=== PATIENT | male | born 1955 | race Caucasian/White ===

== ENCOUNTER 2023-07-11 13:30 | Outpatient (RCR) | payer BC, SELFPAY | END 2023-10-22 13:54 | disposition home or self-care (01) | PROVIDERS: PCP Family Medicine; Visit Provider Family Medicine | DX: M48.10 Ankylosing hyperostosis [Forestier], site unspecified (principal); M45.9 Ankylosing spondylitis of unspecified sites in spine; M26.609 Unspecified temporomandibular joint disorder, unspecified side; Z51.89 Encounter for other specified aftercare | CPT/HCPCS: 97110; 97140; 97162 ==

== ENCOUNTER 2023-09-21 07:25 | Emergency (ER) | payer BC, SELFPAY ==
[2023-09-21 07:36] VITALS: BP 156/87; PULSE 67; RESP 18; TEMP 36.3; O2SAT 97; BMI 35.9
--- NOTE | 2023-09-21 08:12 | ED_ITS ---
HPI - General Adult General Chief complaint: Ear/Nose/Throat Problem Stated complaint: trouble breathing Time Seen by Provider: 09/21/23 07:53 History of Present Illness HPI narrative: This 68-year-old male comes in because of 2 weeks of cough. He has been seen 3 times in urgent care and has been taking the steroid, Zithromax, nasal spray, and [id number] medicines. He has had testing for COVID, influenza, RSV, and strep which returned negative. He comes in today because he has difficulty sleeping due to persistent coughing. He also has a hoarse voice. Related Data Home Medications Medication Instructions Recorded Confirmed diclofenac sodium 75 mg 75 mg PO BID 09/12/23 09/19/23 tablet,delayed release ketoconazole 2 % topical cream 1 applic topical 09/12/23 09/19/23 losartan 25 mg tablet 25 mg PO DAILY 09/12/23 09/19/23 metoprolol succinate 50 mg 50 mg PO DAILY 09/12/23 09/19/23 tablet,extended release 24 hr tamsulosin 0.4 mg capsule 0.8 mg PO QPM 09/12/23 09/19/23 Previous Rx's Medication Instructions Recorded azithromycin 250 mg tablet See Rx Instructions PO .COMPLEX #6 09/17/23 tabs benzonatate 200 mg capsule 200 mg PO BID PRN cough 5 days #10 09/17/23 caps prednisone 20 mg tablet 40 mg (2 x 20 mg) PO QDAY 5 days 09/17/23 #10 tabs albuterol sulfate 90 mcg/actuation 2 puff inhalation Q4-6H PRN 09/19/23 aerosol inhaler (Ventolin HFA) shortness of breath or wheezing #8.5 grams acetaminophen 300 mg-codeine 30 mg 1 tab PO Q6H PRN pain #24 tabs 09/21/23 tablet methylprednisolone 4 mg tablets in See Rx Instructions PO .COMPLEX 09/21/23 a dose pack (Medrol (Chas)) #21 ea Allergies Allergy/AdvReac Type Severity Reaction Status Date / Time No Known Drug Allergies Allergy Verified 09/19/23 19:38 Review of Systems Status of ROS: Reports: 10 or more systems reviewed and unremarkable except as noted in History and below Narrative: Constitutional: No fevers, no weight gain or loss. Eyes: No discharge. No vision changes. HENT: Sore throat. Cardiovascular: No chest pain, no palpitations. Respiratory: No shortness of breath, no wheezes. Frequent coughing especially at night. Gastrointestinal: No abdominal pain, no vomiting, no diarrhea. Genitourinary: No dysuria, no hematuria. Musculoskeletal: Normal range of motion. Skin: No rashes, no pruritis. Neurological: No dizziness, weakness, sensory change, speech change. Endo/Heme/Allergies: No bruising or bleeding. No polydipsia. Pysch: no suicidality, no anxiety, no insomnia. All other systems reviewed and are negative. Exam Narrative: Exam Narrative: Constitutional: Well-developed, well-nourished, no acute distress. HEENT: Normocephalic, atraumatic. Oropharynx has no sign of exudate or tonsillar hypertrophy. No muffled voice or trismus. Neck: Normal range of motion. Nontender. Supple. Heart: Regular. No murmurs. Normal rate. Intact distal pulses. Lungs: Clear to auscultation. No chest discomfort. No wheezes, rhonchi, or rales. Abdomen: Normal bowel sounds. Nontender. No rebound tenderness. Genitalia: Deferred. Back: No midline tenderness. Normal range of motion. Extremities: Normal range of motion. No injury. Skin: Intact. No rash. Warm. No erythema or pallor. Neurologic: No altered sensation. No weakness. Alert and oriented. Psychiatric: No suicidality. No anxiety or depression. No insomnia. Nursing notes and vitals signs are reviewed. Const: Vital Signs, click to edit/add: Vital Signs - 24 hr 09/21/23 07:36 Temperature 97.3 F L Pulse Rate [Pulse Oximeter] 67 Respiratory Rate 18 Blood Pressure [Ri ght Upper Arm] 156/87 H Pulse Oximetry 97 Oxygen Delivery Me thod Room Air Course Vital Signs Vital signs: Initial Vital Signs Temperature 97.3 F L 09/21/23 07:36 Temperature Source Temporal Artery Scan 09/21/23 07:36 Pulse Rate 67 09/21/23 07:36 Respiratory Rate 18 09/21/23 07:36 Blood Pressure 156/87 H 09/21/23 07:36 Blood Pressure Mean 110 H 09/21/23 07:36 Pulse Oximetry 97 09/21/23 07:36 Oxygen Delivery Method Room Air 09/21/23 07:36 Vital Signs Temperature 97.3 F L 09/21/23 07:36 Pulse Rate 67 09/21/23 07:36 Respiratory Rate 18 09/21/23 07:36 Blood Pressure 156/87 H 09/21/23 07:36 Pulse Oximetry 97 09/21/23 07:36 Oxygen Delivery Method Room Air 09/21/23 07:36 Temperature 97.3 F L 09/21/23 07:36 Pulse Rate 67 09/21/23 07:36 Respiratory Rate 18 09/21/23 07:36 Blood Pressure 156/87 H 09/21/23 07:36 Pulse Oximetry 97 09/21/23 07:36 Oxygen Delivery Method Room Air 09/21/23 07:36 Medical Decision Making MDM Narrative Medical decision making narrative: This patient comes in with persistent cough and upper respiratory symptoms that began 2 weeks ago. He has been on several medications as described above and arrives here today with normal vital signs. He states that his primary symptom is unrelenting cough at night such that he has difficulty sleeping. He has been using [id number] cough medicine without much relief. I did discuss x-ray and CT imaging options along with lab studies that can be done. In a process of shared decision-making the patient declined any of these seeing that he has normal vital signs and has had testing done at urgent care. He is okay to be discharged home and did receive a prescription for Tylenol 3 and Medrol Dosepak. Discharge Plan Discharge Clinical Impression: Upper respiratory infection Patient Disposition: Home, Self-Care Condition: Stable Additional Instructions: Take medications as prescribed. Use [id number] medicines also as needed and directed. Follow up with MD or return if worsening symptoms happen. Prescriptions: New acetaminophen-codeine 300-30 mg tablet 1 tab PO Q6H PRN (Reason: pain) Qty: 24 0RF methylprednisolone [Medrol (Chas)] 4 mg tablets,dose pack See Rx Instructions .ROUTE .COMPLEX Qty: 21 0RF Rx Instructions: orally per package directions No Action diclofenac sodium 75 mg tablet,delayed release (DR/EC) 75 mg PO BID ketoconazole 2 % cream 1 applic topical tamsulosin 0.4 mg capsule 0.8 mg PO QPM losartan 25 mg tablet 25 mg PO DAILY metoprolol succinate 50 mg tablet extended release 24 hr 50 mg PO DAILY benzonatate 200 mg capsule 200 mg PO BID PRN (Reason: cough) 5 Days Qty: 10 0RF azithromycin 250 mg tablet See Rx Instructions PO .COMPLEX Qty: 6 0RF Rx Instructions: For 250 mg dose pack: take 500 mg today (day 1), then 250 mg for 4 days (days 2-5) PO prednisone 20 mg tablet 40 mg PO QDAY 5 Days Qty: 10 0RF albuterol sulfate [Ventolin HFA] 90 mcg/actuation HFA aerosol inhaler 2 puff inhalation Q4-6H PRN (Reason: shortness of breath or wheezing) Qty: 8.5 0RF Follow Up/Referrals: Charan Floyd MD [Primary Care Provider] - Stand Alone Forms: [employer] Info Instructions
== END 2023-09-21 08:26 | disposition home or self-care (01) ==
LOC: ED 08:22
PROVIDERS: Emergency Provider Emergency Medicine Emergency Medical Services; PCP Family Medicine
DX: J06.9 Acute upper respiratory infection, unspecified (principal)
CPT/HCPCS: 95992; 99283; 99284

== ENCOUNTER 2024-11-07 07:38 | Outpatient (CLI) | payer MEDICARE, BC, SELFPAY ==
[2024-11-07 12:36] VITALS: BMI 37.7
== END 2024-11-07 07:39 | disposition home or self-care (01) ==
LOC: NUTRITION 07:38
PROVIDERS: PCP Family Medicine; Visit Provider Dietitian, Registered
DX: E66.9 Obesity, unspecified (principal); Z68.36 Body mass index [BMI] 36.0-36.9, adult; Z71.3 Dietary counseling and surveillance
CPT/HCPCS: G0463

== ENCOUNTER 2024-11-21 09:40 | Outpatient (CLI) | payer MEDICARE, BC, SELFPAY ==
[2024-11-21 09:33] VITALS: BMI 37.0
== END 2024-11-21 09:41 | disposition home or self-care (01) ==
LOC: NUTRITION 09:40
PROVIDERS: PCP Family Medicine; Visit Provider Dietitian, Registered
DX: E66.9 Obesity, unspecified (principal); Z68.36 Body mass index [BMI] 36.0-36.9, adult; Z71.3 Dietary counseling and surveillance
CPT/HCPCS: G0463

== ENCOUNTER 2024-12-05 08:59 | Outpatient (CLI) | payer MEDICARE, BC, SELFPAY ==
[2024-12-05 10:59] VITALS: BMI 37.0
== END 2024-12-05 09:00 | disposition home or self-care (01) ==
LOC: NUTRITION 09:00
PROVIDERS: PCP Family Medicine; Visit Provider Dietitian, Registered
DX: E66.9 Obesity, unspecified (principal); Z68.36 Body mass index [BMI] 36.0-36.9, adult; Z71.3 Dietary counseling and surveillance
CPT/HCPCS: G0463

== ENCOUNTER 2024-12-26 11:08 | Outpatient (CLI) | payer MEDICARE, BC, SELFPAY ==
[2024-12-26 08:53] VITALS: BMI 36.6
== END 2024-12-26 11:09 | disposition home or self-care (01) ==
LOC: NUTRITION 11:09
PROVIDERS: PCP Family Medicine; Visit Provider Dietitian, Registered
DX: E66.9 Obesity, unspecified (principal); Z68.36 Body mass index [BMI] 36.0-36.9, adult; Z71.3 Dietary counseling and surveillance
CPT/HCPCS: G0463

== ENCOUNTER 2025-01-16 09:45 | Outpatient (CLI) | payer MEDICARE, BC, SELFPAY ==
[2025-01-16 10:11] VITALS: BMI 36.9
== END 2025-01-16 09:46 | disposition home or self-care (01) ==
LOC: NUTRITION 09:46
PROVIDERS: PCP Family Medicine; Visit Provider Dietitian, Registered
DX: E66.9 Obesity, unspecified (principal); Z68.36 Body mass index [BMI] 36.0-36.9, adult; Z71.3 Dietary counseling and surveillance
CPT/HCPCS: G0463

== ENCOUNTER 2025-02-06 11:00 | Outpatient (CLI) | payer MEDICARE, BC, SELFPAY ==
[2025-02-06 09:50] VITALS: BMI 37.1
== END 2025-02-06 11:01 | disposition home or self-care (01) ==
LOC: NUTRITION 02-10 11:48
PROVIDERS: PCP Family Medicine; Visit Provider Dietitian, Registered
DX: E66.9 Obesity, unspecified (principal); Z68.36 Body mass index [BMI] 36.0-36.9, adult; Z71.3 Dietary counseling and surveillance
CPT/HCPCS: G0463

== ENCOUNTER 2025-02-24 09:00 | Outpatient (CLI) | payer MEDICARE, BC, SELFPAY ==
[2025-02-24 09:35] VITALS: BMI 36.8
== END 2025-02-24 09:01 | disposition home or self-care (01) ==
LOC: NUTRITION 02-25 10:01
PROVIDERS: PCP Family Medicine; Visit Provider Dietitian, Registered
DX: E66.9 Obesity, unspecified (principal); Z68.36 Body mass index [BMI] 36.0-36.9, adult; Z71.3 Dietary counseling and surveillance
CPT/HCPCS: G0463

== ENCOUNTER 2025-03-10 06:38 | Outpatient (CLI) | payer MEDICARE, BC, SELFPAY ==
[2025-03-10 08:27] VITALS: BMI 36.3
== END 2025-03-10 06:39 | disposition home or self-care (01) ==
LOC: NUTRITION 06:45
PROVIDERS: PCP Family Medicine; Visit Provider Dietitian, Registered
DX: E66.9 Obesity, unspecified (principal); Z68.36 Body mass index [BMI] 36.0-36.9, adult; Z71.3 Dietary counseling and surveillance
CPT/HCPCS: G0463

== ENCOUNTER 2025-03-31 07:04 | Outpatient (CLI) | payer MEDICARE, BC, SELFPAY ==
[2025-03-31 13:09] VITALS: BMI 36.1
--- OUTSIDE RECORDS SUMMARY | 2025-04-01 00:54 | XMS_ITS | Clinical Summary ---
Author Organization [facility] Address [address] , [address] [place] [address] Phone Care Team Providers Care Dispensing Audiologist Name Role Phone [facility] Unavailable Unava ilable Conditions or Problems Problem Name Problem Code Onset Date Status Entry Date Provider Comment Standard Description Annotate Cerebral infarctions I63.9 (ICD-10-CM ) 11/16 Active 11/16 Gigi Cooper MD Cerebral infarction, unspecified Sensorineural hearing loss, bilateral [id number] (SNOMED CT) 02/25 Active 11/16 Gigi Cooper MD Sensorineural hearing loss of bilateral ears Imported from [facility]: [facility] ( at 08:33:31 AM) Sacroiliac pain [id number] (SNOMED CT) 11/29 Active 11/16 Gigi Cooper MD Pain of sacroiliac joint Imported from [facility]: [facility] ( at 08:33:31 AM) Hip replacement, right [id number] (SNOMED CT) 11/05 Active 11/16 Gigi Cooper MD Repair of hip Obstructive sleep apnea [id number] (SNOMED CT) 04/25 Active 11/16 Gigi Cooper MD Obstructive sleep apnea syndrome Imported from [facility]: [facility] ( at 08:33:31 AM) Malignant melanoma of lower extremity, including hip C43.70 (ICD-10-CM ) 10/15 Active 11/16 Gigi Cooper MD Malignant melanoma of unspecified lower limb, including hip [facility] ( at 08:[facility] AM) Lung nodules R91.8 (ICD-10-CM ) 02/22 Active 11/16 Gigi Cooper MD Other nonspecific abnormal finding of lung field Imported from [facility]: [facility] ( at 08:33:31 AM) Lumbosacral spondylosis without myelopathy [id number] (SNOMED CT) 11/29 Active 11/16 Gigi Cooper MD Lumbosacral spondylosis without myelopathy Imported from [facility]: [facility] ( at 08:33:31 AM) Hyperplastic colon polyp K63.5 (ICD-10-CM ) 10/09 Active 11/16 Gigi Cooper MD Polyp of colon Imported from [facility]: [facility] ( at 08:33:31 AM) HTN (hypertension) I10 (ICD-10-CM ) 10/29 Active 11/16 Gigi Cooper MD Essential (primary) hypertension Imported from [facility]: [facility] ( at 08:33:31 AM) BPH with urinary obstruction [id number] (SNOMED CT) 03/21 Active 11/16 Gigi Cooepr MD Benign prostatic hyperplasia with outflow obstruction Imported from [facility]: [facility] ( at 08:33:31 AM) Medications Medication Instructions Start Date Stop Date Generic Name [facility] Provider ASPIRIN 81 MG CHEW ASPIRIN [id number] Gigi Cooper MD TAMSULOSIN HCL 0.4 MG CAPS 0.8 mg at bedtime tamsulosin [id number] QIEUSER QIEUSER multivitamin Take 1 Tablet by mouth once daily. MVI QIEUSER QIEUSER LOSARTAN POTASSIUM 25 MG TABS Take 1 Tablet (25 mg) by mouth once daily. Wait until they call for this. losartan [id number] QIEUSER QIEUSER VITAMIN D3 25 MCG (1000 UT) CAPS Take 1 Capsule (1,000 units) by mouth once daily. cholecalciferol (vitamin d3) [id number] QIEUSER QIEUSER Ca carb-Ca gluc-Mg ox-Mg gluco Take by mouth. Calcium Magnesium QIEUSER QIEUSER Medications Administered No information available. Allergies, Adverse Reactions, Alerts Allergy Name Reaction Description Start Date Severity Statu s Provider HYMENOPTERA ALLERGENIC EXTRACT Edema Severe Active Gigi gilbert MD Results Date Name Value Unit Range Flag Description Chart Maintenance: Patient I ntake EGFR NOT AFA >60 mL/min/1.7 3m2 Glomerular filtration rate/1.73 sq M.predicted among non-blacks [Volume Rate/Area] in Serum, Plasma or Blood by Creatinine-based formula (MDRD) CA 9.2 mg/dL Calcium [Mass/volume] in Serum or Plasma ABSOLUTE BAS normal 10*3/uL Basophil s [#/volume] in Blood GFR >60 mL/min Glomerular filtration rate/1.73 sq M.predicted among non-blacks [Volume Rate/Area] in Serum, Plasma or Blood by Creatinine-based formula (MDRD) NON-HDL CHOL 121 mg/dL choleste rol, non-HDL, total CHOL/HDL 3.37 cholesterol/ HDL ratio, serum CO2 TOTAL 25 mmol/L carbon diox marguerite, serum, total GLUCOSE SER 101 mg/dL Glucose [Mass/volume] in Serum or Plasma TRIGLYC TOT 108 mg/dL Triglycer marguerite [Mass/volume] in Serum or Plasma - mg/dL BUN/CREAT 17 Urea nitrogen/Creatinin e [Mass Ratio] in Serum or Plasma ANION GAP 7 Anion gap 4 in Serum or Plasma SODIUM 141 mmol/L Sodium [Moles/volume] in Serum or Plasma PSA 2.36 ng/mL Prostate spec ific Ag [Mass/volume] in Serum or Plasma POTASSIUM 4.9 mmol/L Potassium [Moles/volume] in Serum or Plasma LDL 99 mg/dL Cholesterol i n LDL [Mass/volume] in Serum or Plasma - mg/dL HDL 51 mg/dL Cholesterol i n HDL [Mass/volume] in Serum or Plasma - mg/dL CREATININE 0.89 mg/dL Creatinine [Mass/volume] in Serum or Plasma CHOLESTEROL 172 mg/dL Cholester ol [Mass/volume] in Serum or Plasma - mg/dL CHLORIDE 109 mmol/L Chloride [Moles/volume] in Serum or Plasma BUN 15 mg/dL Urea nitrogen [Mass/volume] in Serum or Plasma Office Visit: old strokes on MRI fax SMOK STATUS former smoker Tob acco smoking status Internal Other: Authorizatio n - OBS [id number] Yes GE use only - for [employer] import when terms are not otherwise specified HIECONSENT Yes Consent To Release information to the Health Information Exchange ([employer]) Plan of Care Type Date Detail Pending order Echocardiogram C omplete with Bubble w/o Contrast Pending order Other Test Pending order Other Test Pending Order exclud ed from report: Pending order Echocardiogram C omplete with Bubble w/o Contrast Pending Order exclud ed from report: Procedures No information available. Vital Signs Date Name Value Unit Description BMI (Body Mass Index) 35.03 kg/m2 Bod y Mass Index (Ratio) BP Diastolic 70 mm[Hg] blood pressu re, diastolic BP Systolic 130 mm[Hg] blood pressur e, systolic Heart Rate 76 /min pulse rate Height 70.25 [in_us] height E&M Weight Measured 111.36 kg weight in kilograms E&M Weight Measured 245 [lb_av] weight E& M Weight Measured 245 [lb_av] weight E& M Body Temperature 36.39 [degF] temperat ure E&M Immunizations No information available. Advance Directives No information available.
--- OUTSIDE RECORDS SUMMARY | 2025-04-01 00:56 | XMS_ITS | Clinical Summary ---
Author Organization [facility] Address [address] [place] [id number] Care Team Providers Care Husbandry Person Name Role Phone Charan Floyd MD Primary Care Provider [phone] Rich Mann MD Unavailable Dianna Mix TESTER [employer]POS[employer]AKAGE Unavailable Allergies Active Allergy Reactions Criticality Noted Date Comments Hymenoptera Allergenic Extract Edema High 11/03 Venom-Honey Bee Angioedema 04/21/1976 Medications multivitamin (MVI) tablet Take 1 Tablet by mouth once daily. 0 1 Active cholecalciferol (Vitamin D) 1,000 unit capsule Take 1 Capsule (1,000 units) by mouth once daily. 0 1 Active acetaminophen (TYLENOL EXTRA STRGTH) 500 mg tablet 1 Active metroNIDAZOLE 0.75 % cream APPLY THIN LAYER TO ENTIRE FACE 1-2X DAILY 2 Active CPAPIndications: Obstructive sleep apnea CPAP machine for home use at pressure: 9.6 cmw , Heated humidifier x 1 q 5 yr, Humidifier chamber x 1 q 6 mo, Full face mask x1 q 3mos, with cushion x 1 q mo, Heated tubing x 1 q 3 mo, Headgear x 1 q 6 mo, Filters: Disposable x 2 q mo non-disposable filters x1 q 6mo, Length of Need: 99 months, Frequency of use: Daily 1 Each 11 3 Active medication order composer Using CBD cream on arms and back as needed Active ubidecarenone/vi tamin E mixed (COQ10 SG 100 ORAL) Take by mouth once daily. Active PLANT STANOL NATALIE ORAL Take by mouth once daily. Active melatonin 1 mg tablet Take 1 mg by mouth at bedtime. Unsure of dose Active tamsulosin (FLOMAX) 0.4 mg capsuleIndicatio ns:BPH with urinary obstruction TAKE 1 capsule twice daily 180 Capsule 3 4 Active losartan (COZAAR) 25 mg tabletIndication s:HTN (hypertension) Take 1 Tablet (25 mg) by mouth once daily. 90 Tablet 3 4 Active metoprolol succinate (TOPROL XL) 50 mg sustained-releas e tabletIndication s:Paroxysmal SVT (supraventricula r tachycardia) (HC) Take 1 Tablet (50 mg) by mouth once daily. 90 Tablet 3 4 Active CPAPIndications: KALEN (obstructive sleep apnea) CPAP (E0601) machine for home use at pressure: 5-16 , Choice of mask (A7030 or A7034) w/full face cushion (A7031) x1/mo, nasal cushion (A7032) x2/mo, or nasal pillows (A7033) x 2/mo; Length of Need: 99 months; Frequency of use: Daily 1 Each 11 4 Active rosuvastatin (Crestor) 20 mg tabletIndication s:Coronary artery disease due to lipid rich plaque Take 1 Tablet (20 mg) by mouth at bedtime. 90 Tablet 4 4 Active Active Problems Problem Noted Date Diagnosed Date Coronary artery disease due to lipid rich plaque 06/24/2024 DISH (diffuse idiopathic skeletal hyperostosis) 06/12/2023 Overview (06/12/2023): Diagnosed by Dr. Alvarez in 05/2023. Ankylosing spondylitis 06/12/2023 Overview (06/12/2023): Diagnosed by Dr. Alvarez in 05/2023. History of stroke 09/23/2021 Overview (09/23/2021): Optimize lipids. Keep Systolic blood pressure below 135 and diastolic blood pressure between 60 and 85 Malignant melanoma of lower extremity, including hip 08/15/2021 Overview (08/15/2021): 2 Malignant Melanomas. One on his left back and one on his left carrasco in May 2021. BPH with urinary obstruction 03/21/2021 Squamous cell cancer of skin of right cheek 06/09 Overview (06/30/2020): Treated with scraping 04/2020 Obstructive sleep apnea 07/09/2018 Overview (04/25/2019): Uses CPAP and that is working well. Benign prostatic hyperplasia with lower urinary tract symptoms 11/18/2016 Lung nodules 02/23/2016 Overview (02/23/2016): A calcified granuloma was diagnosed in the right lung and 2 pulmonary nodules were diagnosed in the left lung on a CT scan in February 2016. It is recommended that a follow-up CT scan to look at these lesions be done in 6-12 months. Basal cell carcinoma of skin of face 05/26/2015 HTN (hypertension) 10/29/2013 Hyperplastic colon polyp 08/09/2012 Overview (08/01/2022): Colonoscopy 08/2012 polyp repeat in 10 years Colonoscopy 07/2022 hyperplastic polyp, repeat in 10 years Lumbar Facet Arthropathy with Normal Disks 11/29 Osteoarthritis of Left Hip 11/29/2009 Left Sacroiliac Osteoarthritis 11/29/2009 Sensorineural hearing loss, bilateral 02/26/2008 Unspecified sleep apnea 02/21/2008 Resolved Problems Problem Noted Date Diagnosed Date Resolved Date Hypertrophy of prostate with out urinary obstruction and other lower urinary tract symptoms (LUTS) 02/21/2008 11/18/2016 Hypertrophy of prostate with urinary obstruction and other lower urinary tract symptoms (LUTS) 02/19/2008 02/19/2008 Immunizations Immunization Administration Dates Next Due COVID-19 vaccine (Arstasis NTMemento 30mcg/0.3mL) PF, MDV 09/23/2021,02/01/2021,01/11/2021 Td (Age >=7 Years) 12/06/1998 Tdap 04/25/2019,05/19/2009 Family History Medical History Relation Name Comments Diabetes type II Brother Miguel Heart Disease Brother Miguel Hyperlipidemia Brother Miguel Hypertension Brother Miguel Sleep apnea Brother Miguel Arthritis Father Cancer Father at 80 of L eukemia Diabetes Father Heart Disease Maternal Grandmother a t 81 of MS Dementia Mother Parkinsonism Mother of this at 87 Heart Disease Paternal Grandfather a t 65 of MS Stroke Paternal Grandmother at 75 Diabetes type II Sister 1 Krissy Sleep apnea Sister 1 Krissy Sleep apnea Sister 2 Tamika Relation Name Status Comments Brother Miguel Alive Father Maternal Grandmother Mother Paternal Grandfather Paternal Grandmother Sister 1 Krissy Alive Sister 2 Tamika Alive Social History Tobacco Use Types Packs/Day Years Used Date Smoking Tobacco: Never Smokeless Tobacco: Never Tobacco Cessation:Counseling Given: Yes Alcohol Use Standard Drinks/Week Comments Yes 7 (1 standard drink = 0.6 oz pur e alcohol) 1 beer daily PHQ-2 Answer Date Recorded PHQ-2 TOTAL SCORE 0 06/27/2024 Social Connections Answer Date Recorded Do you often feel lonely or isolated from those around you? 0 06/11/2024 Alcohol Use Answer Date Recorded How often do you have a drink containing alcohol ? 4 06/11/2024 How many drinks containing a lcohol do you have on a typical day when you are drinking? 0 06/11/2024 How often do you have five or more drinks on one occasion? 0 06/11/2024 Financial Resource Strain Answer Date R ecorded Difficulty of Paying Living Expenses 3 06/11/2024 Difficulty of Paying Living Expenses Not on file 06/11/2024 Food Insecurity Answer Date Recorded Do you worry your food will run out before you are able to buy more? 1 06/11/2024 Transportation Needs Answer Date Record ed Does lack of transportation keep you from medica l appointments? 1 06/11/2024 Does lack of transportation keep you from work, meetings or getting things that you need? 1 06/11/2024 Housing Stability Answer Date Recorded What is your housing situation today? 1 06/11/2024 Utilities Answer Date Recorded Do you have trouble paying f or utilities (for example, heat, electricity, water, phone)? 1 06/11/2024 Sex and Gender Information Value Date Recorded Sex Assigned at Male 07/12/2020 8:46 AM CDT Legal Sex Male 5:24 AM BOX PRESS OPERATOR Gender Identity Not on file Sexual Orientation Not on file Obstetrics History Last Filed Vital Signs Vital Sign Reading Time Taken Comments Blood Pressure 133/79 08/19/2024 9:30 AM BOX PRESS OPERATOR Pulse 56 08/19/2024 9:30 AM BOX PRESS OPERATOR Temperature 36.5 C (97.7 F) 06/27/2024 8:02 AM CDT Respiratory Rate 18 08/07/2018 10:32 AM CDT Oxygen Saturation 95% 08/19/2024 9:30 AM BOX PRESS OPERATOR Inhaled Oxygen Concentration - - Weight 116 kg (255 lb 12.8 oz) 08/19/2024 9:30 A M BOX PRESS OPERATOR Height 177.8 cm (5' 10) 06/27/2024 8:02 AM CDT Body Mass Index 36.7 06/27/2024 8:02 AM CDT Plan of Treatment Health Maintenance Due Date Last Done Comments Pneumococcal series for age 50+ (1 of 2 - PCV) 1972 Zoster (shingles) series for age 50+ (1 of 2) 2003 COVID-19 vaccine series ( season) 2024 09/23/2021, 02/01/2021, 01/11/2021 Influenza Vaccine (Season Ended) 2025 BMI (ht and wt on same day) for age 18+ 06/27/2025 06/27/2024, 06/12/2023, 08/28/2022, Additional history exists Depression screening for age 12+ 06/27/2025 06/27/2024, 06/13/2024, 06/13/2024, Additional history exists Medicare Wellness for age 65+ 06/28/2025 06/27/2024 RSV vaccine for adults or (1 - 1-dose 75+ series) 2028 Tetanus booster 04/25/2029 04/25/2019, 05/08, 12/06/1998 Lipids for age 45-75 06/24/2029 06/24/2024, 06/12/2023, 04/12/2022, Additional history exists Colonoscopy through age 75 07/27/203207/27, 07/27/2022, 07/27/2022, Additional history exists Tdap Completed 04/25/2019, 05/19/2009 Hepatitis C screening for age 18-79 Completed 06/12/2023 Hepatitis B series for 19+ Aged Out N o longer eligible based on patient's age to complete this topic Medical Devices Implanted Type Area Ebd Teacher Device Identifier Shelf Expiration Date Model / Serial / Lot Liner Hip Id36mm Dynasty A-Class Pe - [id number] Implanted:Qty: 1 on 11/04/2013 by Layo Cho MD at [facility] Left: Hip 05/06/2021 [id number] / / [id number] Stem Hip Sz8 Profemur Tl Titnm - [id number] Implanted:Qty: 1 on 11/04/2013 by Layo Cho MD at [facility] Left: Hip [employer] 01/04/2021 [id number] / / [id number] Shell Hip Od60mm Dynasty Biofoam Titnm - [id number] Implanted:Qty: 1 on 11/04/2013 by Layo Cho MD at [facility] Left: Hip [employer] 06/06/2021 [id number]# / / [id number] Liner 36mm Group G Implanted:Qty: 1 on 11/04/2013 by Layo Cho MD at [facility] Left: Hip 11/06/2021 [id number] / / [id number] Description:Dynasty A-class polyliner Neck Hip Short Sz2 Profemur Ante/Retro/Varus/Va lgus Co Cr - [id number] Implanted:Qty: 1 on 11/04/2013 by Layo Cho MD at [facility] Left: Hip [employer] 01/04/2019 [id number] # / / [id number] Head Hip Od36mm Short Lineageguardian Alumina Ceramic - [id number] Implanted:Qty: 1 on 11/04/2013 by Layo Cho MD at [facility] Left: Hip [employer] 06/06/2021 [id number] # / / [id number] Explanted Type Area Ebd Teacher Device Identifier Shelf Expiration Date Model / Serial / Lot Pin Kevyn Thread 3/16in - [id number] Explanted:Qty: 1 on 11/04/2013 by Layo Cho MD at [facility] Left: Hip [employer] 07/07/2023 47-2620 -13# / / [id number] Stanford Bagley Thread 12/21in - [id number] Explanted:Qty: 1 on 11/04/2013 by Layo Cho MD at [facility] Left: Hip [employer] 06/06/2023 [id number] -13# / / [id number] Procedures Procedure Name Priority Date/Time Associated Diagnosis Comments LIPID PANEL W REFLEX MEASURED LDL Routine 06/24/2024 10:53 AM CDT Other hyperlipidemia ANTI HCV Routine 06/12/2023 10:00 AM CDT Need for hepatitis C screening test COLONOSCOPY SCREENING Routine 07/27/2022 7:27 AM CDT Screening for colon cancer from Last 3 Months or Most Recently Relevant to Health Maintenance Results * (ABNORMAL) LIPID PANEL W REFLEX MEASURED LDL (06/24/2024 10:53 AM CDT) CHOLESTEROL, TOTAL 200(H) <200 mg/dL [facility] HDL CHOLESTEROL 49 > OR = 40 mg/dL [facility] TRIGLYCERIDES 296(H) <150 mg/dL [facility] Comment: If a non-fasting specimen was collected, consider repeat triglyceride testing on a fasting specimen if clinically indicated. Tessie et al. J. of Clin. Lipidol. 2015;9:129-169. LDL-CHOLESTEROL 112(H) mg/dL (calc) [facility] Comment: Reference range: <100 Desirable range <100 mg/dL for primary prevention; <70 mg/dL for patients with CHD or diabetic patients with > or = 2 CHD risk factors. LDL-C is now calculated using the Jonathon calculation, which is a validated novel method providing better accuracy than the Friedewald equation in the estimation of LDL-C. Raymundo SS et al. PHIL. 2013;310(19): 9709-9406 (http://education.KickAss Candy/faq/JBO284) CHOL/HDLC RATIO 4.1 <5.0 (calc) [facility] NON HDL CHOLESTEROL 151(H) <130 mg/dL (calc) [facility] Comment: For patients with diabetes plus 1 major ASCVD risk factor, treating to a non-HDL-C goal of <100 mg/dL (LDL-C of <70 mg/dL) is considered a therapeutic option. Blood BLOOD SPECIMEN / Unknown 06/24/2024 10:53 AM CDT 06/24/2024 10:54 AM CDT Charan Floyd MD CHEMISTRY Final Resu lt Performing Organization Address [facility]/ZIP Co de Phone Number [facility] [address] [place] [address], [facility] [address] [place] [address] * ANTI HCV (06/12/2023 10:00 AM CDT) HEPATITIS C ANTIBODY Non-Reacti ve Non-React rachel 06/12/2023 5:55 PM CDT [facility] Comment:Please note, per www .CDC.gov: If a patient is known to be at high risk of HCV infection, or is symptomatic, and the physician's suspicion of HCV infection is high, HCV RNA testing is often employed and is of diagnostic value, even after an initial negative anti-HCV test result. Blood BLOOD SPECIMEN / Unknown Venipuncture / Unknown 06/12/2023 10:00 AM CDT 06/12/2023 10:03 AM CDT Charan Floyd MD SEND OUTS Final Resu lt [facility] [address] [place] [address], [place] * COLONOSCOPY (07/27/2022 7:34 AM CDT) 07/27/2022 7:34 AM CDT Narrative Transcriptions Raymundo Ware MD - 07/27/2022 8:44 AM CDT Patient Name: Raymundo Meza Procedure Date: 07/27/2022 Gender: Male Date of : 1955 Admit Type: Outpatient Procedure: Colonoscopy Proceduralist: Raymundo Ware MD , Laquita Kc, RN (Nurse) Referring MD: Charan Floyd Indications/Pre-Op Diagnosis: Screening for colorectal malignant neoplasm, Last colonoscopy: August 2012 Medications: Fentanyl 100 micrograms IV, Midazolam 3 mgIV, The level of sedation administered wasmoderate Procedure Description: The patient had risks, benefits and alternatives explained to andgave informed consent. The patient had a stable cardiopulmonary status and judged an adequate candidate for conscious sedation. The endoscope [id number] was passed through the anus andadvanced to the cecum, identified by appendiceal orifice and ileocecal valve.The colonoscopy was performed without difficulty. The patient toleratedthe procedure well. The quality of the bowel preparation was good. The ileocecal valve, appendiceal orifice, and rectum were photographed. Complications: No immediate complications. Estimated Blood Loss & Specimen: Estimated blood loss: none. Specimen collected - Yes and sent to Laboratory Findings: The perianal and digital rectal examinations were normal. Two sessile polyps were found in the sigmoid colon. The polyps were 3mm in size. These polyps were removed with a cold snare. Resection and retrieval were complete. A 1 mm polyp was found in the rectum. The polyp was sessile. Thepolyp was removed with a cold snare. Resection was complete, but the polyp tissue was not retrieved. The exam was otherwise without abnormality. Impressions/Post-Op Diagnosis: - Two 3 mm polyps in the sigmoid colon, removed with a cold snare. Resected and retrieved. - One 1 mm polyp in the rectum, removed with a cold snare. Complete resection. Polyp tissue not retrieved. - The examination was otherwise normal. Recommendation: - Patient has a contact number available for emergencies. The signsand symptoms of potential delayed complications were discussed with the patient. Return to normal activities tomorrow. Written discharge instructions were provided to the patient. - Resume previous diet. - Continue present medications. - Await pathology results. - Repeat colonoscopy is recommended. The colonoscopy date will be determined after pathology results from today's exam become available for review. Moderate Sedation: A time out was performed before the procedure. Moderate (conscious) sedation was administered by the endoscopy nurse and supervised bythe endoscopist. The following parameters were monitored: oxygensaturation, heart rate, blood pressure, EKG, CO2, respiratory rate, adequacy of pulmonary ventilation and reponse to care. Please refer to the patient's medical record flowsheets and nursing notes for moderate sedation details. Total physician intraservice time was 24 minutes. Raymundo Ware MD 07/27/2022 8:44:43 AM This report has been signed electronically. Note Initiated On: 07/27/2022 7:34 AM Procedure Code(s): --- Professional --- 19862, Colonoscopy, flexible; with removalof tumor(s), polyp(s), or other lesion(s) bysnare technique Diagnosis Code(s): --- Professional --- Z12.11, Encounter for screening formalignant neoplasm of colon D12.5, Benign neoplasm of sigmoid colon D12.8, Benign neoplasm of rectum CPT copyright 2020 [employer]. All rights reserved. The codes documented in this report are preliminary and upon medical biller coder reviewmay be revised to meet current compliance requirements. Scope In: 8:07:29 AM Scope Withdrawal Time 0 hours 13 minutes 31 seconds Scope Out: 8:25:04 AM us Raymundo Ware MD PROCEDURE ORD Final Res ult from Last 3 Months or Most Recently Relevant to Health Maintenance Insurance [employer] PB ONLY * Guarantor: [employer] CONTRACT,EDUCATION NO-CHARGE Account Type Relation to Patient Date of Phone Billing Address Contract 2009 ATTN: [employer] [address] [place] [address] Advance Directives Documents on File Type Date Recorded Patient Baggage Screener Expl anation Healthcare Directive 11/13/2013 6:03 PM * Full Code (Latest Code Status on File) Date Activated Date Inactivated Comments 11/04/2013 11:00 AM 11/05/2013 6:00 PM Care Teams Husbandry Person Relationship Specialty Start Date End Date Charan Floyd MD [address] [facility] [address] PCP - General 01/20/06 Rich Mann MD [address] [facility] [address] Urology Surgery - Urology 12/19/11 Dianna Mix NP [address] [place] [address] Nurse Practitioner - Family 02/08/23
--- OUTSIDE RECORDS SUMMARY | 2025-04-01 00:56 | XMS_ITS | Clinical Summary ---
Author Organization [facility] Address [address] [place] [address] Care Team Providers Care Automation Engineering Technician Name Role Phone Charan Floyd MD Primary Care Provider [phone] Source Comments You are receiving this document as you are listed as the primary care provider,follow-up provider, or the patient has been referred to you for consultation.This is in compliance with the Medicare and[facility] EHR Incentive Program,which states Providers who transition their patient to another setting of careor provider of care or refers their patient to another provider of care shouldprovide summary care record for each transition of care or referral. [place] Airline Allergies Active Allergy Reactions Criticality Noted Date Comments Bee Venom Angioedema,Swelling High 04/21/1976 Wasp Venom Protein Edema,generalized High 11/03/2013 Medications coenzyme Q10 10 MG capsule Take 1 Capsule (10 mg) by mouth. Active losartan (COZAAR) 25 MG tablet losartan 25 mg tablet TAKE 1 TABLET BY MOUTH EVERY DAY Active metoprolol succinate (TOPROL XL) 50 MG 24 hour release tablet metoprolol succinate ER 50 mg tablet,extended release 24 hr Active metroNIDAZOLE (METROCREAM) 0.75 % cream metronidazole 0.75 % topical cream APPLY THIN LAYER TO ENTIRE FACE 1-2X DAILY Active tamsulosin (FLOMAX) 0.4 MG CAPS capsule tamsulosin 0.4 mg capsule TAKE 2 CAPSULES BY MOUTH AT BEDTIME Active diclofenac (VOLTAREN) 75 MG enteric coated tablet TAKE 1 TABLET(75 MG) BY MOUTH TWICE DAILY 60 Tablet 2 3 Active Active Problems Problem Noted Date Diagnosed Date DISH (diffuse idiopathic skeletal hyperostosis) 05/18/2023 History of bilateral hip replacements 05/18/2023 Severe obesity (BMI 35.0-39.9) with comorbidity 05/18/2023 History of stroke 09/23/2021 Overview (01/05/2023): Optimize lipids. Keep Systolic blood pressure below 135 and diastolic blood pressure between 60 and 85 Malignant melanoma of lower extremity, including hip 08/15/2021 Overview (01/05/2023): 2 Malignant Melanomas. One on his left back and one on his left carrasco in May 2021. Squamous cell cancer of skin of right cheek 06/09 Overview (01/05/2023): Treated with scraping 04/2020 Obstructive sleep apnea syndrome 07/09/2018 Overview (01/05/2023): Uses CPAP and that is working well. Uses CPAP and that is working well. Benign localized hyperplasia of prostate 017 Hypertrophy of prostate with urinary obstruction 11/18/2016 Lung nodules 02/23/2016 Overview (01/05/2023): A calcified granuloma was diagnosed in the right lung and 2 pulmonary nodules were diagnosed in the left lung on a CT scan in February 2016. It is recommended that a follow-up CT scan to look at these lesions be done in 6-12 months. Basal cell carcinoma of skin of face 05/26/2015 Hypertension 10/29/2013 Hyperplastic colon polyp 08/09/2012 Overview (01/05/2023): Colonoscopy 08/2012 polyp repeat in 10 years Colonoscopy 07/2022 hyperplastic polyp, repeat in 10 years Lumbosacral spondylosis without myelopathy 11/29 Osteoarthritis of hip 11/29/2009 Sacroiliac pain 11/29/2009 Sensorineural hearing loss, bilateral 02/26/2008 Resolved Problems Problem Noted Date Diagnosed Date Resolved Date Sleep apnea 02/21/2008 02/09/2023 Immunizations Immunization Administration Dates Next Due Pfizer Monovalent 12+ Purple Top 09/23/2021,01/07,01/11/2021 Td 12/06/1998 Tdap 04/25/2019,05/19/2009 Family History Medical History Relation Name Comments Rheumatologic Disease Negative Family History Social History Tobacco Use Types Packs/Day Years Used Date Smoking Tobacco: Never Smokeless Tobacco: Never Tobacco Cessation:Counseling Given: Not Answered Alcohol Use Standard Drinks/Week Comments Yes 4 (1 standard drink = 0.6 oz pur e alcohol) Sex and Gender Information Value Date Recorded Sex Assigned at Not on file Legal Sex Male 4:15 AM CDT Gender Identity Not on file Sexual Orientation Not on file Last Filed Vital Signs Vital Sign Reading Time Taken Comments Blood Pressure 144/88 08/24/2023 11:48 AM MANAGER RELOCATION Pulse 57 08/24/2023 11:48 AM MANAGER RELOCATION Temperature - - Respiratory Rate - - Oxygen Saturation - - Inhaled Oxygen Concentration - - Weight 115.7 kg (255 lb) 08/24/2023 11:48 AM MANAGER RELOCATION Height 177.8 cm (5' 10) 01/05/2023 7:40 AM CDT Body Mass Index 36.59 01/05/2023 7:40 AM CDT Plan of Treatment Health Maintenance Due Date Last Done Comments Colon Cancer Screening Plan Due 1953 Adult Preventive Visit 1971 Cholesterol 1988 Pneumococcal Vaccine 50+ Yrs (1 of 1 - PCV) 2003 Zoster/Shingles Vaccine (1 o f 2) 2003 COVID-19 Vaccine (4 - 2023-2 5 season) 2024 09/23/2021, 02/01/2021, 01/11/2021 Influenza Vaccine (Season Ended) 2025 RSV Vaccine (1 - 1-dose 75+ series) 2028 DTaP/Tdap/Td Vaccine (3 - Tdap) 04/25/2029 04/25/2019, 05/19/2009, 12/06/1998 Hep C Screening (Preventive Services) Completed 02/09/2023 HepA Vaccine Aged Out No longer eligi ble based on patient's age to complete this topic HepB Vaccine Aged Out No longer eligi ble based on patient's age to complete this topic Hib Vaccine Aged Out No longer eligi ble based on patient's age to complete this topic MCV4 Vaccine Aged Out No longer eligi ble based on patient's age to complete this topic Meningococcal B Vaccine Aged Out No l onger eligible based on patient's age to complete this topic Procedures Procedure Name Priority Date/Time Associated Diagnosis Comments HEPATITIS C ANTIBODY, WITH REFLEX (ANTI-HCV) Routine 02/09/2023 2:55 PM CDT Ankylosing spondylitis of site in spine (HRC) from Last 3 Months or Most Recently Relevant to Health Maintenance Results * Hepatitis C Antibody, with Reflex (02/09/2023 2:55 PM CDT) Hepatitis C Antibody Negative (Non Reactive) Negative (Non Reactive) 02/09/2023 8:30 PM CDT [facility] Comment:Antibodies to HCV no t detected. Does not exclude the possiblity of exposure to HCV. Blood Venipuncture / Unknown 02/09/2023 2:55 PM CDT 02/09/2023 2:55 PM CDT Mike Alvarez MD LAB_1 Final Result [facility] [address] [place] [address], [facility] from Last 3 Months or Most Recently Relevant to Health Maintenance Insurance [facility] MEDICARE PART A Care Teams Automation Engineering Technician Relationship Specialty Start Date End Date Charan Floyd MD [address] [place] [phone] PCP - General 09/03/13
--- OUTSIDE RECORDS SUMMARY | 2025-04-01 00:56 | XMS_ITS | Data Portability ---
Author Organization [place] [facility] Address [address] [facility] [address] [place] [address] Assessment Encounter Date Assessment Date Assessment LastModified by Organization Details LastModified Time 08/02/2022 08/02/2022 66 Y/O MALE, HX BPH AND RELATED SX.S TWO EPISODES OF RETENTION IN THE PAST. PRESENTLY STABLE ON FLOMAX 0.8 MG DAY. HE DID NOT TOLERATE FINASTERIDE. PVR 21CC, U/A NEG. SEEN BY DR HANSEN AT [facility]. ALSO SEEN AT [facility] WITH EXTENSIVE WORKUP. SIZE 93G. PSA 2.4. REVIEWED EXTENSIVE RECORDS FROM [facility], [facility] ORDERED AND REVIEWED U/A,PVR. REVIEWED ALL OPTIONS- U-LIFT, REZUM, GREENLIGHT LASER, HOLEP, TURP, PAE, AND SOON TO COME AQUA ABALATION. PLAN HE WILL CONTINUE WITH MEDICAL THERAPY. RTC 3 MO AND LATER DECIDE ON MORE DEFINITIVE THERAPY.ALL QUESTIONS ANSWERED. Not available 08/02/2022 14:55:34 Plan of Treatment Reminders Order Date Submit Date Provider Last Modified By Organization Details Last Modified Time Details Appointments None recorded. Lab urinalysis , dipstick 2021 022 rugarte2 [facility], [address], [place], [address], 14:00:59 Referral None recorded. Procedures None recorded. Surgeries None recorded. Imaging None recorded. Medication Orders None recorded. Patient TargetsNo targets recorded. Patient InstructionsNo instructions recorded. Reason for Referral None Reported. Results Created Date Observation Date Name Description Value Unit Range Abnormal Flag Note LastModifiedBy Organization Detail LastModifiedTime 08/02/2008/02/2022 urina lysis , dipst ick Color-Status Yellow Not Available [facility] [address], [place], [address], 08/02/2022 14:00:43 08/02/20 22 08/02/2022 urina lysis , dipst ick Clarity-Stat us Clear Not Available [facility] [address], [place], [address], 08/02/2022 14:00:43 08/02/20 22 08/02/2022 urina lysis , dipst ick pH-Status 5.5 Not Available [facility] [address], [place], [address], 08/02/2022 14:00:43 08/03/20 22 08/02/2022 bladd er scan (PROC ) No observ ation record ed. BARCODE Not Available 2021 12:16:00 Result Notes None recorded. Procedures Surgical History Date Name Laterality Status Provider Name and Address Organization Details Recorded Time Bladder Scan completed Faraz Ferrer MD [address] [place] [address],[address], [place], [address], [facility] 08/02/2022 14:00:20 Imaging Results None recorded. Procedure Notes None recorded. Medical Equipment None Reported. Allergies No known drug allergies Medications Name Sig Start Date Stop Date Status Note LastModified by Organization Details LastModified Time binaxnow cov kit home nabeel active Not Available Not Available Not Available atorvastati n 40 mg tablet 08/02 completed Not Available Not Available Not Available atorvastati n 20 mg tablet 08/02 completed Not Available Not Available Not Available metoprolol succinate ER 50 mg tablet,exte nded release 24 hr active Not Available Not Available Not Available acetaminoph en 500 mg tablet 08/02 completed Not Available Not Available Not Available tamsulosin 0.4 mg capsule TAKE 2 CAPSULES BY MOUTH AT BEDTIME active Not Available Not Available No t Available metronidazo le 0.75 % topical cream APPLY THIN LAYER TO ENTIRE FACE 1-2X DAILY active Not Available Not Available No t Available losartan 25 mg tablet TAKE 1 TABLET BY MOUTH EVERY DAY active Not Available Not Available No t Available aspirin 81 mg chewable tablet active Not Available Not Available Not Available oxycodone 5 mg tablet TAKE 1/2 - 1 TABLET BY MOUTH EVERY 4 TO 6 HOURS NEEDED. MAXIMUM DAILY DOSE IS IS 6 TABLETS. TAKE 1/2 FOR MODERATE PAIN AND 1 FOR SEVERE. 08/02 completed Not Available Not Available Not Available rosuvastati n 10 mg tablet 08/02 completed Not Available Not Available Not Available peg 3350-electr olytes 236 gram-22.74 gram-6.74 gram-5.86 gram solution DRINK 2 LITERS THE DAY BEFORE THE DAY BEFORE COLONOSCO PY AND 2 LITERS 4-6 HOURS BEFORE APPOINTME NT 08/02 completed Not Available Not Available Not Available Xarelto 10 mg tablet TAKE 1 TABLET BY MOUTH DAILY FOR DEEP VEIN CLOT PREVENTIO N POST-SURG CHRISTINE. COMPLETE BEFORE STARTING ASPIRIN 08/02 completed Not Available Not Available Not Available Stimulant Laxative Plus 8.6 mg-50 mg tablet TAKE 1 TO 4 TABLETS BY MOUTH TWICE DAILY. HOLD MED IF EXPERIENC ING LOOSE STOOLS 08/02 completed Not Available Not Available Not Available Vitals Date Recorded Body height Body mass index (BMI) Body weight Provider Name and Address Organization Details Last Updated DateTime 08/02/2022 177.8 cm 35.2 kg/m2 580187.13 g Faraz Ferrer MD [address] [place] [address], [phone], [facility] 08/02/2022 13:57:40 Social History Question Answer Notes LastModified by Organizat ion Details LastModified Time Tobacco Smoking Status Never Smoker Faraz Ferrer MD [address] [place] [address],[address], [address], [facility] 08/02/2022 13:59:24 What Was The Date Of Your Most Recent Tobacco Screening? 08/02/2022 Information not available 08/02/2022 Sex: Unknown Functional Status None recorded. Mental Status None recorded. Family History Nothing Reported. Medical History Condition Response Other Y High Blood Pressure Y High Cholesterol Y Past Encounters Encounter ID Performer Location Encounter Start Date Encounter Closed Date Diagnosis/Indication Diagnosis SNOMED-CT Code Diagnosis ICD10 Code Diagnosis Note [id number] Faraz Ferrer MD [facility] [address] [place] [address] 08/02/2022 13:36:17 08/04/2022 13:47:25 Benign prostatic hyperplasia with outflow obstruction 783916375 N40.1 Health Concerns Section Related Observation LastModified by Organization Detai ls LastModified Time None Recorded Concern Status LastModified by Organization Details LastModified Time None Recorded Advance Directives Directive None Recorded Payers Insurance Date Sequence Insurance Name Policy Number Policy Diaz Covered Member ID Diaz Member ID Guarantor Name 08/02/2022 1 [employer] [employer] [place] [id number] Raymundo Meza [id number] Raymundo Meza Notes Date Note Type Note Provider Name and Address Organization Details Recorded Time 08/02/2022 text/html 66 YOM HERE FOR 2ND OPINION FOR BPH.PAST HX OF URINARY RETENTION AFTER ETOH. TAKES TAMSULOSIN TWICE A DAY. DOING WELL. HAS BEEN SEEN IN [facility] AND AT [facility]. EXTENSIVE EVALUATION. CYSTO. U/S SIZE 93G. PSA 2.4. PVR 21CC, U/A NEG. Faraz Ferrer MD [address] [facility],[address], [place], [address], [facility] 08/02/2022 14:56:00
== END 2025-03-31 07:05 | disposition home or self-care (01) ==
LOC: NUTRITION 07:04
PROVIDERS: PCP Family Medicine; Visit Provider Dietitian, Registered
DX: E66.9 Obesity, unspecified (principal); Z68.36 Body mass index [BMI] 36.0-36.9, adult; Z71.3 Dietary counseling and surveillance
CPT/HCPCS: G0463

== ENCOUNTER 2025-04-21 06:31 | Outpatient (CLI) | payer MEDICARE, BC, SELFPAY ==
[2025-04-21 10:19] VITALS: BMI 36.3
== END 2025-04-21 06:32 | disposition home or self-care (01) ==
LOC: NUTRITION 06:31
PROVIDERS: PCP Family Medicine; Visit Provider Dietitian, Registered
DX: E66.9 Obesity, unspecified (principal); Z68.36 Body mass index [BMI] 36.0-36.9, adult; Z71.3 Dietary counseling and surveillance
CPT/HCPCS: G0463

== ENCOUNTER 2025-05-15 06:52 | Outpatient (CLI) | payer MEDICARE, BC, SELFPAY ==
[2025-05-15 08:50] VITALS: BMI 36.4
== END 2025-05-15 06:53 | disposition home or self-care (01) ==
LOC: NUTRITION 06:52
PROVIDERS: PCP Family Medicine; Visit Provider Dietitian, Registered
DX: E66.9 Obesity, unspecified (principal); Z68.36 Body mass index [BMI] 36.0-36.9, adult; Z71.3 Dietary counseling and surveillance
CPT/HCPCS: G0463